=== PATIENT | male | born 1995 | race American Indian/Alaskan Native ===

== ENCOUNTER 2019-04-07 08:38 | Emergency (ER) | payer OTHER ==
[2019-04-07 08:46] VITALS: BP 135/100
[2019-04-07] MEDS ORDERED: IBUPROFEN PO ONE (08:55)
--- NOTE | 2019-04-07 09:01 | Emergency Department Report ---
HPI - General Chief Complaint: Skin/Abscess/Foreign Body Time Seen by Provider: 04/07/19 08:48 - HPI HPI: 23-year-old -Indian male presents to the emergency department with a one-week history of progressively worsening pain and swelling and infection of the distal portion of his right ring/fourth finger. He states that it will drain at times. He has not taken anything for her symptoms prior to presentation. Denies any fever. ED Past Medical Hx - Past Medical History Previous Medical History?: No - Surgical History Past Surgical History?: No - Social History Smoking Status: Never Smoker Substance Use Type: Marijuana - Medications Home Medications: Home Medications Medication Instructions Recorded Confirmed Last Taken Type Sulfamethoxazole/Trimethoprim 1 each PO BID #6 tablet 04/07/19 Unknown Rx [Bactrim DS TAB] ED Review of Systems ROS: Stated complaint: FINGER SWOLLEN Other details as noted in HPI Comment: All other systems reviewed and negative Constitutional: denies: chills, fever Musculoskeletal: joint swelling (right fourth finger). denies: back pain Skin: other (redness and pus with swelling to the distal right fourth finger). denies: lesions Physical Exam - Physical Exam Vital Signs: Vital Signs 04/07/19 08:40 Temperature 97.5 F L Pulse Rate 73 Respiratory 18 Rate Blood Pressure 135/100 O2 Sat by Pulse 100 Oximetry Physical Exam: GENERAL: The patient is well-developed well-nourished. HENT: Normocephalic. Atraumatic. Patient has moist mucous membranes. EYES: Extraocular motions are intact. NECK: Supple. Trachea is midline. CHEST/LUNGS: Clear to auscultation. There is no respiratory distress noted. HEART/CARDIOVASCULAR: Regular. There is no tachycardia. There is no murmur. ABDOMEN: There is no abdominal distention. SKIN: There is some swelling, mild erythema and areas/pockets of purulence seen to the distal right fourth finger consistent with a paronychia. NEURO: The patient is awake, alert, and oriented. The patient is cooperative. The patient has normal speech. MUSCULOSKELETAL: Tenderness to palpation to the distal right fourth finger with the patient has a paronychia. There is no limitation range of motion. ED Course Vital Signs 04/07/19 08:40 Temperature 97.5 F L Pulse Rate 73 Respiratory 18 Rate Blood Pressure 135/100 O2 Sat by Pulse 100 Oximetry - I & D Right Finger Type of Procedure: Simple Site: distal right fourth finger paronychia Blade Size: 11 I & D Procedure: betadine prep, sterile drapes applied, sterile dressing applied Progress: 2 small incisions were made with the 11 blade scalpel. There was about 2 mL of purulent discharge was expressed. The area was squeezed to break up any possible loculations and appears that all pus has been removed. Pressure was held for any bleeding cessation. No obvious palpitations. Patient tolerated the procedure well. ED Medical Decision Making - Medical Decision Making Large distal right fourth finger paronychia. An incision and drainage was done with a return of about 2 mL of purulence in the area was squeezed to break up any loculations and it appears that all of the pus has been expressed. Sterile dressing applied. Patient will use soap and water to clean the area. He will go on a three-day course of antibiotics due to the size and severity of the paronychia. No signs of infection to the finger pad. Vital signs stable, including being afebrile. - Differential Diagnosis paronychia, felon, osteomyelitis, cellulitis Critical Care Time: No Critical care attestation.: If time is entered above; I have spent that time in minutes in the direct care of this critically ill patient, excluding procedure time. ED Disposition Clinical Impression: Paronychia of finger of right hand Disposition: TO HOME OR SELFCARE Is pt being admited?: No Condition: Stable Instructions: Paronychia (ED), Incision and Drainage (ED) Additional Instructions: You can soak the area in warm water to try and express any further infection. Clean the area with soap and water and then keep it dry. Return to the emergency department or see a primary care physician with any return of signs or symptoms of infection, worsening of your symptoms, or any acute distress. Prescriptions: Sulfamethoxazole/Trimethoprim [Bactrim DS TAB] 1 each PO BID #6 tablet Referrals: PCP, Your [Other] - 3-5 Days Time of Disposition: 09:02
== END 2019-04-07 09:06 | disposition home or self-care (01) ==
LOC: ED 08:38
DX: L03.011 Cellulitis of right finger (principal)